=== PATIENT | male | born 1970 | race Caucasian/White ===

== ENCOUNTER 2016-09-02 17:33 | Observation (INO) ==
--- NOTE | 2016-09-02 20:06 | Emergency Department Note ---
Disposition Clinical Impression: Bronchitis, Tobacco abuse, Pulmonary nodule Emphysema lung Qualifiers: Emphysema type: unspecified Qualified Code(s): J43.9 - Emphysema, unspecified Disposition: Admitted As Inpatient Condition: Good Time of Disposition: 20:21 General Adult HPI - General Chief complaint: ED Nausea/Vomiting/Diarrhea Stated complaint: "hurts all over" Time Seen by Provider: 09/02/16 19:11 Source: patient Mode of arrival: ambulatory Limitations: no limitations Nursing Notes Reviewed: Yes Vital Signs Reviewed: Yes - History of Present Illness HPI Narrative: 46-year-old male history of tobacco use presents for evaluation "hurt all over" with the primary focus of pain bilateral lower chest/ribs. Patient states the pain started after several episodes of coughing over the past 3 days. Patient states this started 3 days ago with cough and fever. Patient states his symptoms appear to resolving. Patient notes that he only coughed a couple times today. Patient has been taking NyQuil as needed for relief. Patient denies any chest pain. Patient states his lower rib pain started after coughing has had one episode of posttussis emesis. Patient has no abdominal pain. Patient denies any recent travel, presented availability, history of PE or DVT. Patient denies being a immunocompromised. Pain Scale: 0 - Related Data Previous Rx's Medication Instructions Recorded Albuterol Sulfate [Albuterol 2 puff IH Q4HR PRN #1 hfa.aer.ad 09/02/16 Inhaler] Albuterol Sulfate [Albuterol 2 puff IH Q4H PRN #2 inh 09/05/16 Inhaler] Azithromycin [Zithromax Tri-Abraham] 500 mg PO DAILY #2 tablet 09/05/16 Cefdinir [Omnicef] 300 mg PO BID #14 capsule 09/05/16 Allergies Allergy/AdvReac Type Severity Reaction Status Date / Time No Known Allergies Allergy Verified 09/02/16 17:37 All systems ED: reviewed and negative except as stated. Constitutional: Reports: as per HPI, fever Eyes: Reports: as per HPI ENT ED: Reports: as per HPI Cardiovascular: Reports: as per HPI. Denies: chest pain Respiratory: Reports: as per HPI, cough. Denies: dyspnea Gastrointestinal: Reports: as per HPI Genitourinary: Reports: as per HPI Musculoskeletal: Reports: as per HPI Integumentary: Reports: as per HPI Neurological: Reports: as per HPI Psychiatric: Reports: as per HPI Endocrine: Reports: as per HPI Past Medical History - Past Medical History Medical history: Reports: non-contributory - Social History Smoking Status: Current every day smoker Alcohol use: Reports: rarely Drug use: Reports: none Physical Exam - General Limitations: no limitations General appearance: alert, cachectic, other (Older than stated age) - Head Head exam: atraumatic, normal inspection - Eye Eye exam: Present: normal appearance, EOMI - ENT ENT exam: normal exam, mucous membranes moist - Neck Neck exam: Present: normal inspection, trachea midline - Chest Chest inspection: Present: normal inspection, symmetric chest wall rise. Absent : tenderness (No tenderness in the bilateral lower ribs no overlying rash), rash - Respiratory Respiratory exam: Present: normal lung sounds bilaterally. Absent: respiratory distress, wheezes - Cardiovascular Cardiovascular exam: Present: normal rhythm, tachycardia - Abdominal Exam Abdominal exam: Present: soft, Non-Tender - Back Exam Back exam: Present: normal inspection, other (3 x 2 cm skin lesion on the left lower back) - Neurological Exam Neurological exam: Present: alert Course Course Narrative: Patient seen and examined. Patient is nontoxic-appearing. Patient symptoms are likely consistent with bronchitis. She does not have an official diagnosis of chronic bronchitis. Patient will get a chest x-ray and symptomatically treatment. Patient states that he feels better. Patient denies any at this time. - Reevaluation(s) Reevaluation #1: Patient seen and evaluated. Patient no acute distress. Patient's resting comfortably. Patient denies any symptoms of tuberculosis. Patient denies any history of incarceration. No hemoptysis. No unintentional weight loss. Patient does state that he has been having night sweats which he attributed to the recent cold. Time: 21:53 Reevaluation #2: Patient's resting comfortably. No acute distress. Time: 22:13 - Consultations Consultation #1: Spoke with hospitalist regarding admission. Hospitalist will confirm negative airflow room and then will accept the patient. Time: 22:56 Vital Signs Temperature 99 F 09/02/16 17:35 Pulse Rate 125 09/02/16 17:35 Respiratory Rate 16 09/02/16 17:35 Blood Pressure 124/77 09/02/16 17:35 O2 Sat by Pulse Oximetry 92 09/02/16 17:35 Temperature 97.3 F L 09/05/16 12:17 Pulse Rate 74 09/05/16 12:17 Respiratory Rate 14 09/05/16 12:17 Blood Pressure 117/77 09/05/16 12:17 O2 Sat by Pulse Oximetry 94 09/05/16 12:17 Oxygen Delivery Oxygen Delivery Room Air Medical Decision Making - MDM Narrative Medical decision making narrative: 46-year-old male presents for evaluation of cough and bilateral rib pain. Patient states symptoms started approximately 3 days ago with fever. Patient states the coughing has improved. Patient had a chest x-ray performed which had concerning signs of possible tuberculosis. Patient states he has been having night sweats. No unnecessary weight loss. No hemoptysis. Patient has not been incarcerated. Patient does have a concerning history as well as physical exam findings of facial muscle wasting and lung findings. Concerned that the patient does not have appropriate follow-up for this as an outpatient. Patient will be admitted for observation, infectious disease control on airborne precautions. Patient will likely need to be further evaluated by infectious disease. Patient will be started on a Zithromax as well as Rocephin covering for community acquired pneumonia. - Lab Data Lab results reviewed: Yes I reviewed the patient's lab results. Result diagrams: 09/04/16 04:18 09/04/16 04:18 Lab Results 09/02/16 09/02/16 Range/Units 22:23 22:23 WBC 14.7 H (4.3-11.1) K/mcL RBC 4.36 (4.19-5.50) M/mcL Hgb 13.5 (12.9-16.9) g/dL Hct 39.1 (37.5-50.1) % MCV 89.7 (83.0-100.0) fL MCH 31.0 (28.0-33.3) pg MCHC 34.5 (31.6-35.5) g/dL RDW 12.8 (11.5-14.5) % Plt Count 255 (140-400) K/mcL MPV 9.1 L (9.4-12.4) fL Immature Gran % 0.3 (0-4) % Seg Neutrophils % 77.2 % Lymphocytes % 11.9 % Monocytes % 10.2 % Eosinophils % 0.1 % Basophils % 0.3 % Neutrophils # 11.3 H (1.6-8.9) K/mcL Lymphocytes # 1.8 (0.6-4.6) K/mcL Monocytes # 1.5 H (0.0-1.3) K/mcL Eosinophils # 0.0 (0.0-0.6) K/mcL Basophils # 0.1 (0.0-0.2) K/mcL Sodium 131 L (136-145) mEq/L Potassium 3.9 (3.5-4.5) mEq/L Chloride 96 L (98-109) mEq/L Carbon Dioxide 25 (19-29) mEq/L BUN 11 (8-26) mg/dL Creatinine 0.73 (0.72-1.25) mg/dL Est GFR ( Amer) > 60 (> 60) Est GFR (Non-Af Amer) > 60 (> 60) BUN/Creatinine Ratio 15 (6-26) Glucose 108 H (70-99) mg/dL Calculated Osmolality 272 L (280-300) Calcium 9.6 (8.6-10.8) mg/dL - Radiology Data Radiology results reviewed: Yes I reviewed the patient's radiology results. Chest X-Ray 09/02/16 20:07 IMPRESSION: Moderate to severe emphysema with diffuse chronic interstitial and reticular opacities with more confluent areas of scarring/bronchiectasis noted in the right apex, left upper lobe and right lower lobes. Additional nodular opacities at the right base may reflect a more acute component. Overall findings may represent sequela of acute on chronic infection, including TB. Findings were discussed with Champ Hickman at 8:55 pm on 09/02/2016. D/ / Mau Morales MD / Mau Morales MD Interpreting Provider: Mau Morales MD S.B.A.R. - S.B.A.R. Situation: Demographics Background: Presenting Complaint Assessment: Vital Signs, Course and respsone to treatment, Exam Concerns, Patient/Family Expectation Recommendation: Barrier(s) to disposition, Recommendation based on pending studies, treatments, or consults S.B.A.R. Report Given to: Dr. CY Silva Repor Time: 23:28 Attestation Statement - Attestation Attestation: I examined this patient and my medical decision-making was reviewed with the Resident Physician. I agree with the documented findings, disposition and treatment plan as described except to the extent set forth below. CXR concerning for the possibility of Tb, admission for further [facility]
[2016-09-02 22:42] LABS: Basophils # 0.1 K/mcL (0.0-0.2); Basophils % 0.3 %; Eosinophils % 0.1 %; Hematocrit 39.1 % (37.5-50.1); Hemoglobin 13.5 g/dL (12.9-16.9); Immature Granulocytes % 0.3 % (0-4); Lymphocytes # 1.8 K/mcL (0.6-4.6); Lymphocytes % 11.9 %; Mean Corpuscular HGB Conc 34.5 g/dL (31.6-35.5); Mean Corpuscular Volume 89.7 fL (83.0-100.0); Mean Platelet Volume 9.1 fL (9.4-12.4); Monocytes # 1.5 K/mcL (0.0-1.3); Monocytes % 10.2 %; Neutrophils # 11.3 K/mcL (1.6-8.9); Platelet Count 255 K/mcL (140-400); Red Blood Count 4.36 M/mcL (4.19-5.50); Red Cell Distribution Width 12.8 % (11.5-14.5); Segmented Neutrophils % 77.2 %
[2016-09-02] MEDS ORDERED: Azithromycin 500 MG in D5% in Water 250 ML IVPB ONE (22:45)
[2016-09-02 22:54] LABS: BUN/Creatinine Ratio 15 (6-26); Blood Urea Nitrogen 11 mg/dL (8-26); Calcium 9.6 mg/dL (8.6-10.8); Carbon Dioxide 25 mEq/L (19-29); Chloride 96 mEq/L (98-109); Glucose 108 mg/dL (70-99); Osmolality,Calculated 272 (280-300); Potassium 3.9 mEq/L (3.5-4.5); Sodium 131 mEq/L (136-145); eGFR For African Americans > 60 (> 60); eGFR For Non-African Americans > 60 (> 60)
--- NOTE | 2016-09-03 01:29 | Internal Med History&Physical ---
<Kristi Sweeney - Last Filed: 09/03/16 03:23> Date of Encounter: 09/03/16 Time of Encounter: 00:30 Assessment and Plan (1) Pneumonia Current visit: Yes Status: Acute - CXR found moderate to severe emphysema and scarring/bronchiectasis in the right apex, left upper lobe and right lower lobes. Nodular opacities at the right base may reflect a more acute component. Overall findings may represent sequela of acute on chronic infection, including TB. - Unknown pathogen at this time but will treat as community acquired pneumonia while keeping patient in negative pressure room with respiratory precaution for questionable TB. - Will obtain sputum cultures including AFB smear and culture. - Will check Quantiferon GOLD for TB. - Also check respiratory infection panel and urine antigens for Legionella and S. pneumoniae. - Will consult infectious diseases and appreciate their input, especially for questionable TB in this patient. - Continue IV ceftriaxone and azithromycin but will de-escalate later based on clinical change/culture result. - Continue to monitor. Qualifiers: Pneumonia type: due to unspecified organism Laterality: unspecified laterality Lung location: unspecified part of lung Qualified Code(s): J18.9 - Pneumonia, unspecified organism (2) Emphysema lung Current visit: Yes Status: Chronic - CXR showed moderate to severe emphysema. - Likely secondary to underlying COPD given patient's significant smoking history. - Bronchodilators prn. - Patient is recommended to have outpatient work-up after discharge. Qualifiers: Emphysema type: unspecified Qualified Code(s): J43.9 - Emphysema, unspecified (3) Pulmonary nodule Current visit: Yes Status: Chronic - CXR found nodular opacities at right lung base. - Patient is recommended to have outpatient work-up after discharge. (4) Tobacco abuse Current visit: Yes Status: Chronic - 1 pack per day for more than 20 years. - Will provide nicotine patch during his hospital stay. - Smoking cessation counseling. Internal Medicine - H&P: HPI Chief complaint: Cough with lower rib pain Admitted From: Emergency Dept Plans for Post Hospital Care: Home History of present illness: Mr. Madison is a 46 year old male with significant smoking history. Patient presented to [facility] ED on 09/02 for cough and associated rib pain. Per patient, those symptoms started since 08/29 and he developed some shortness of breath and one episode of fever with night sweat on 08/30. The symptoms remained stable on but got significantly worse with green sputum production on 09/01. CXR suggests acute on chronic infection including TB. Of encounter on the hospital floor, patient reports cough and rib pain had improved since coming to ED. Patient reports weight loss of 3 lb over 5 days due to poor appetite from current illness. 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 Patient denies hemoptysis. Patient denies recent travel or known exposure to someone with possible TB. Patient reports last incarcerated in 1991 with 10-day in skilled nursing for DUI. Patient works a [employer] company and lives in a trailer. Patient smokes 1 pack per day for more than 20 years with occasional alcohol use. Patient denies illicit or IV drug use. Patient reports no known diagnosis of heart or lung problem but admits not seeing doctor for more than 20 years. Past Med Surg Social Fam HX - Past Medical History Medical history: non-contributory - Past Surgical History Surgical History: no surgical history - Social History Smoking Status: Current every day smoker Alcohol use: occasionally Drug use: none - Family History Mother Hx Family Cardiac Disorders: Yes (HTN) Internal Medicine - H&P: Meds Albuterol Sulfate [Albuterol Inhaler] 2 puff IH Q4HR PRN #1 hfa.aer.ad 09/02/16 [Rx] Allergies No Known Allergies Allergy (Verified 09/02/16 17:37) All Systems PM: A 10-system review of systems was performed and is negative for pertinent findings except as documented above in the HPI. - Constitutional Constitutional: night sweats (Only one time with fever on 08/30.), weight loss ( 3 lbs over 5 days), no chills, no fatigue, no fever(s) - EENT Eyes: no change in vision Ears: no decreased hearing Nose, mouth and throat: no dysphagia, no odynophagia - Cardiovascular Cardiovascular ROS IM: no chest pain, no lightheadedness, no palpitations, no syncope - Respiratory Respiratory: as per HPI - Gastrointestinal Gastrointestinal: no abdominal pain, no hematochezia, no melena, no nausea, no vomiting - Genitourinary Genitourinary ROS male: no difficulty urinating, no dysuria, no hematuria - Musculoskeletal Musculoskeletal ROS IM: myalgias (rib pain from cough), no arthralgias - Integumentary Integumentary IM: no pruritus, no rash - Neurological Neurological ROS: no focal weakness, no numbness, no tingling - Hematologic/Lymphatic Hematologic/Lymphatic: no easy bleeding, no easy bruising - Constitutional Vitals: Temp Pulse Resp BP Pulse Ox 98.0 F 92 18 113/70 92 09/03/16 01:06 09/03/16 01:06 09/03/16 01:06 09/03/16 01:06 09/03/16 01:06 General appearance: Present: cooperative, A&O X 3, no acute distress, answers questions appropriately - Head Head exam: Present: atraumatic, normocephalic - Eye Eye exam: Present: PERRL, conjuntiva pink, sclera anicteric Pupils: Present: PERRL - Neck Neck exam general surgery: Present: supple, trachea midline. Absent: lymphadenopathy - Respiratory Respiratory exam: Present: rales (Right basilar). Absent: accessory muscle use , rhonchi, wheezes - Cardiovascular Cardiovascular exam: Present: RRR, +S1, +S2. Absent: diastolic murmur, gallop, rubs, systolic murmur - GI/Abdominal GI/Abdominal exam: Present: normal bowel sounds, soft, no peritoneal signs. Absent: distended, tenderness - Extremities Exam Extremities exam: Present: warm, radial pulses palpable and symetrical. Absent : calf tenderness, cyanotic, pedal edema - Neurological Exam Neurological exam: Present: CN II-XII intact, oriented X3, no focal deficits. Absent: pronater drift, facial droop, speech deficit - Skin Skin exam: Present: dry, intact, warm Internal Med - H&P Results - Labs CBC & Chem 7: 09/02/16 22:23 09/02/16 22:23 <Nicole Mercado - Last Filed: 09/03/16 04:24> Date of Encounter: 09/03/16 Internal Medicine - H&P: HPI History of present illness: Mr. Madison is a 46 year old male All Systems PM: A 10-system review of systems was performed and is negative for pertinent findings except as documented above in the HPI. - Constitutional Vitals: Temp Pulse Resp BP Pulse Ox 98.0 F 92 18 113/70 92 09/03/16 01:06 09/03/16 01:06 09/03/16 01:06 09/03/16 01:06 09/03/16 01:06 Internal Med - H&P Results - Labs CBC & Chem 7: 09/02/16 22:23 09/02/16 22:23 - Attending Attestation Patient seen and examined, agree with assessment and plan by Resident Vitaliy Sweeney. Patient with cough, concern for CAP and CXR with possible active tuberculosis. Patient very thin but states this is not new - no hemoptysis or night sweats. History of imprisonment >10 years ago for 10 days. Will treat for CAP and consult ID for assistance with ruling out tuberculosis in most efficient manner.
[2016-09-03] MEDS ORDERED: Acetaminophen 325 MG TABLET PO PRN (01:34)
[2016-09-03] MEDS ORDERED: Ipratropium/Albuterol Neb 3 ML IH PRN (04:08)
[2016-09-03 04:41] LABS: Basophils % 0.3 %; Eosinophils # 0.1 K/mcL (0.0-0.6); Eosinophils % 0.6 %; Hematocrit 36.9 % (37.5-50.1); Hemoglobin 12.6 g/dL (12.9-16.9); Immature Granulocytes % 0.6 % (0-4); Lymphocytes # 1.9 K/mcL (0.6-4.6); Lymphocytes % 14.3 %; Mean Corpuscular HGB Conc 34.1 g/dL (31.6-35.5); Mean Corpuscular Hemoglobin 30.7 pg (28.0-33.3); Mean Corpuscular Volume 89.8 fL (83.0-100.0); Mean Platelet Volume 9.2 fL (9.4-12.4); Monocytes # 1.5 K/mcL (0.0-1.3); Monocytes % 11.1 %; Neutrophils # 9.7 K/mcL (1.6-8.9); Platelet Count 252 K/mcL (140-400); Red Blood Count 4.11 M/mcL (4.19-5.50); Red Cell Distribution Width 12.8 % (11.5-14.5); Segmented Neutrophils % 73.1 %
[2016-09-03 05:01] LABS: Alanine Aminotransferase 10 Units/L (0-55); Albumin 2.9 g/dL (3.5-5.0); Albumin/Globulin Ratio 0.7 (1.1-2.2); Alkaline Phosphatase 87 Units/L (38-126); Aspartate Amino Transferase 15 Units/L (5-34); BUN/Creatinine Ratio 15 (6-26); Bilirubin,Total 0.7 mg/dL (0.2-1.2); Blood Urea Nitrogen 11 mg/dL (8-26); Calcium 9.5 mg/dL (8.6-10.8); Carbon Dioxide 29 mEq/L (19-29); Chloride 96 mEq/L (98-109); Globulin 4.3 g/dL (2.4-3.5); Glucose 103 mg/dL (70-99); Osmolality,Calculated 276 (280-300); Potassium 3.9 mEq/L (3.5-4.5); Sodium 133 mEq/L (136-145); Total Protein 7.2 g/dL (6.0-8.3); eGFR For African Americans > 60 (> 60); eGFR For Non-African Americans > 60 (> 60)
[2016-09-03 05:13] LABS: Adenovirus Not Detected (Not Detect); Bordetella Pertussis Not Detected (Not Detect); Chlamydophila pneumoniae Not Detected (Not Detect); Coronavirus 229E Not Detected (Not Detect); Coronavirus HKU1 Not Detected (Not Detect); Coronavirus NL63 Not Detected (Not Detect); Coronavirus OC43 Not Detected (Not Detect); Human Metapneumovirus Not Detected (Not Detect); Human Rhinovirus/Enterovirus ***DETECTED*** (Not Detect); Influenza A Subtype 2009 H1 Not Detected (Not Detect); Influenza A Untypeable Not Detected (Not Detect); Influenza B Not Detected (Not Detect); Mycoplasma pneumoniae Not Detected (Not Detect); Parainfluenza Virus 1 Not Detected (Not Detect); Parainfluenza Virus 2 Not Detected (Not Detect); Parainfluenza Virus 3 Not Detected (Not Detect); Parainfluenza Virus 4 Not Detected (Not Detect); Respiratory Syncytial Virus Not Detected (Not Detect)
[2016-09-03] MEDS ORDERED: Tuberculin Skin Test (PPD) 5 TUB/0.1 ML VIAL ID ONE (07:57)
[2016-09-03] MEDS ORDERED: *HR* Enoxaparin 40 MG/0.4 ML SYRINGE SQ ONE (08:12)
--- NOTE | 2016-09-03 08:39 | Internal Med Progress Note ---
Date of Encounter: 09/03/16 Time of Encounter: 09:28 - Assessment and plan (1) Pneumonia Current Visit: Yes Status: Acute Assessment and plan: Follow resp panel, Urine strep Ag, Urine legionella, Continue Cef/Azithro, leukocytosis is improving Follow sputum culture Follow sputum AFB Follow Quantiferon Infectious disease has been consulted, will follow recs Qualifiers: Pneumonia type: due to unspecified organism Laterality: unspecified laterality Lung location: unspecified part of lung Qualified Code(s): J18.9 - Pneumonia, unspecified organism (2) Pulmonary nodule Current Visit: Yes Status: Chronic Assessment and plan: High risk, will need monitoring and repeat imaging as out-patient (3) Emphysema lung Current Visit: Yes Status: Chronic Assessment and plan: Moderate-Severe emphysema per imaging, patient also with barrel chest Continue [id number] prn Not wheezing, nor in exacerbation a this time Qualifiers: Emphysema type: unspecified Qualified Code(s): J43.9 - Emphysema, unspecified (4) Tobacco abuse Current Visit: Yes Status: Chronic Assessment and plan: NRT - Subjective Interval history: 46 Y/O M Initial encounter Heavy smoker, >20 pack years, admitted for complains of cough and pleuritic chest plaza Findings on admission include leuocytosis with left shift, CXR found moderate to severe emphysema and scarring/bronchiectasis in the right apex, left upper lobe and right lower lobes. Nodular opacities at the right base may reflect a more acute component. Overall findings may represent sequela of acute on chronic infection, including TB. He is being managed for pneumonia, community acquired, organism unknown, as well as rule out TB he is evaluated at bedside, and has no new complains he states his pleuritic chest pain is improving He denies recent incarceration, no sick contacts, has never lived in a retirement, he has always been thin and denies any recent weight loss Work up is pending - Constitutional Vitals: Temp Pulse Resp BP Pulse Ox 98.0 F 79 17 107/65 95 09/03/16 07:33 09/03/16 07:33 09/03/16 07:33 09/03/16 07:33 09/03/16 07:33 General appearance: Present: cooperative, A&O X 3, pleasant, no acute distress, underweight, answers questions appropriately - Head Head exam: Present: atraumatic, normocephalic - Eye Eye exam: Present: PERRL, conjuntiva pink, sclera anicteric Pupils: Present: PERRL - Neck Neck exam general surgery: Present: supple, trachea midline. Absent: lymphadenopathy - Respiratory Additional comments: Right midlle and lower lobe rhonchi, No wheezing, no crackles - Cardiovascular Cardiovascular exam: Present: RRR, +S1, +S2. Absent: diastolic murmur, gallop, rubs, systolic murmur - GI/Abdominal GI/Abdominal exam: Present: normal bowel sounds, soft, no peritoneal signs. Absent: distended, tenderness - Extremities Exam Extremities exam: Present: warm, radial pulses palpable and symetrical. Absent : calf tenderness, cyanotic, pedal edema - Neurological Exam Neurological exam: Present: alert, CN II-XII intact, normal gait, oriented X3, no focal deficits. Absent: pronater drift, facial droop, speech deficit - Skin Skin exam: Present: dry, intact Internal Medicine: Result - Labs CBC & Chem 7: 09/03/16 04:17 09/03/16 04:17 Labs: Short CBC 09/03/16 Range/Units 04:17 WBC 13.3 H (4.3-11.1) K/mcL Hgb 12.6 L (12.9-16.9) g/dL Hct 36.9 L (37.5-50.1) % Plt Count 252 (140-400) K/mcL Neutrophils # 9.7 H (1.6-8.9) K/mcL BMP 09/03/16 04:17 Sodium 133 L Potassium 3.9 Chloride 96 L Carbon Dioxide 29 BUN 11 Creatinine 0.73 Glucose 103 H Calcium 9.5 Liver Function 09/03/16 Range/Units 04:17 Total Bilirubin 0.7 (0.2-1.2) mg/dL AST 15 (5-34) Units/L ALT 10 (0-55) Units/L Alkaline Phosphatase 87 (38-126) Units/L Albumin 2.9 L (3.5-5.0) g/dL Consult Discharge Plan - Plan Referrals: NO,PCP [Primary Care Provider] -
[2016-09-03] MEDS: Nicotine 14 MG PATCH.TD24 TD SCH (09:30)
--- NOTE | 2016-09-03 13:54 | Infectious Disease Consult ---
Date of Encounter: 09/03/16 Time of Encounter: 13:47 Assessment and Plan (1) Sepsis Status: Acute Assessment and plan: The patient had two SIRS criteria on admission. Likely secondary to PNA. WBC trending down. Tachycardia has resolved. Blood cultures drawn 09/03/16 are pending x 2 sets. Qualifiers: Sepsis type: sepsis due to unspecified organism Qualified Code(s): A41.9 - Sepsis, unspecified organism (2) Pneumonia Status: Acute Assessment and plan: Community-acquired PNA. Bacterial vs. viral --> the patient was positive for Enterovirus/Rhinovirus, but he has had marked improvement since starting the IV antibiotics. CXR completed in the ED showed findings concerning for possible TB --> low index of suspicion given that the patient has no risk factors, exposure history , or clinical symptoms. Consider CT of the chest with IV contrast to evaluate further. Get sputum specimen if the patient is able to provide an adequate specimen and send for culture and AFB smear. Send sputum for AFB smear x 3. TB skin test placed this morning. Wait 48 hours, can be read on Thursday. If negative, can discontinue Airborne precautions. QTF Gold pending. S. pneumo and Legionella UAT negative. Continue Rocephin, switch to 2 grams IV daily. Continue Zithromax 500mg IV daily. Continue Airborne precautions for now. Duration of treatment depends on the clinical picture. Monitor renal function and dose-adjust antibiotics. Qualifiers: Pneumonia type: due to unspecified organism Laterality: unspecified laterality Lung location: unspecified part of lung Qualified Code(s): J18.9 - Pneumonia, unspecified organism (3) Emphysema lung Status: Chronic Assessment and plan: Consider pulmonology consult as an outpatient. Qualifiers: Emphysema type: unspecified Qualified Code(s): J43.9 - Emphysema, unspecified (4) Tobacco abuse Status: Chronic Assessment and plan: Discussed the importance of smoking cessation. Infectious Disease HPI - Data of Consult Patient: new to practice Consult date: 09/03/16 Requesting Physician: Frankie Samson MD Primary Care Provider: PCP NO - Consult Narrative Reason for consult: Possible TB History of present illness: Mr. Madison is a 46 year old male medical or surgical history. The patient was admitted to the hospital September 02 for pneumonia and possible TB. We are consulted September 03 for further evaluation and treatment recommendations regarding possible tuberculosis. Patient's a 46-year-old male with no past medical history. The patient states that on Thursday he began to experience fevers and chills and sweats that continued into Thursday. He states that on Thursday he felt pretty good and on Thursday he went to work. He reports approximately one hour after getting to work he began to cough and coughed up green sputum and continued to have a cough. He reported onset of bilateral rib pain associated with the coughing. He presented to the emergency department for further evaluation. Upon arrival, patient was afebrile, patient was tachycardic but was otherwise hemodynamically stable. Laboratory studies revealed a white blood cell count 14.7 thousand. Chest x-ray showed findings consistent with moderate to severe emphysema with diffuse chronic interstitial and reticular opacities with confluent areas of scarring/ bronchiectasis. There is also noted be nodular opacities at the right base. According to the radiologist, these overall findings may be consistent with acute or chronic infection, including tuberculosis. The patient started on IV Rocephin and Zithromax. He was admitted to the hospital for further evaluation and treatment. Additional studies included a respiratory infectious panel which was positive for enterovirus/rhinovirus. AFB smears and sputum cultures have been ordered, but have not been collected due to the patient not being able to cough anything up. Strep pneumococcal and legionella urinary antigen tests have been ordered and are pending. QuantiFERON gold test is pending. A TB skin test has been placed in the left forearm. We've been asked to evaluate and make further recommendations. During my exam today, the patient endorses a history as stated above. He states since being hospitalized since starting the antibiotics he feels much better. He denies any fevers or chills or rigor since admission. He does report fevers with drenching sweats and chills on Thursday. He denies any night sweats, weight loss, or hemoptysis prior to this acute infection. He states that the cough is improved and is nonproductive. He states he still has a little bit of pain in his bilateral ribs, but this is improved as well. He denies any headache or neck pain. 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 He denies any sore throat or earache. He denies any nausea, vomiting, diarrhea, constipation. He denies abdominal pain and states appetite is been okay. He denies any urinary complaints. He denies pain in any of his extremities. The patient lives locally by himself. He works at a [employer]. He has no pets. He denies any recent travel. He reports tobacco use, but a pack of cigarettes per day, but denies any alcohol or illicit drug use. He states he was in the [facility] back in the 90s for about 10 days, but denies incarceration in a detention. He has not been in the . He has not traveled outside the [facility]. He has not been exposed to tuberculosis that he knows of. CC: Frankie Samson MD Past Med Surg Social Fam HX - Past Medical History Attestation: Yes The following information was validated with the patient. Source: patient, old records reviewed, nursing notes reviewed Medical history: non-contributory Psychiatric history: no psych history - Past Surgical History Surgical History: no surgical history - Social History Smoking Status: Current every day smoker Packs per day: 1 Smokeless Tobacco Status: No Alcohol use: occasionally Drug use: none Occupational status: employed Current living situation: Home - Independent Activity Level: Independent ambulation Recent Out of Country Travel Within the Last 8 Weeks: No Exposure or Possible Exposure to Illness During Travel: No - Family History Mother Hx Family Cardiac Disorders: Yes (HTN) Infectious Disease-CN:Meds Albuterol Sulfate [Albuterol Inhaler] 2 puff IH Q4HR PRN #1 [email or web address] 09/02/16 [Rx] Allergies No Known Allergies Allergy (Verified 09/02/16 17:37) All systems: reviewed and no additional remarkable complaints except as stated Exam - Constitutional Vitals: Temp Pulse Resp BP Pulse Ox 98.0 F 79 17 107/65 95 09/03/16 07:33 09/03/16 07:33 09/03/16 07:33 09/03/16 07:33 09/03/16 07:33 General appearance: cooperative, no acute distress, thin - Head Head exam: Present: atraumatic, normal inspection, normocephalic - Eye Eye exam: Present: EOMI, normal appearance, PERRL Pupils: Present: normal accommodation - ENT ENT exam: Present: mucous membranes moist - Neck Neck exam: Present: normal inspection - Respiratory Respiratory exam: Present: CTAB, rhonchi (Left upper lobe). Absent: rales, respiratory distress, wheezes, tachypnea - Cardiovascular Cardiovascular exam: Present: RRR, +S1, +S2 - GI/Abdominal GI/Abdominal exam: Present: normal bowel sounds, soft. Absent: distended, tenderness - Extremities Exam Extremities exam: Present: normal inspection. Absent: joint swelling, pedal edema, tenderness - Neurological Exam Neurological exam: Present: alert, oriented X3, no focal deficits - Psychiatric Psychiatric exam: Present: normal affect, normal mood - Skin Skin exam: Present: dry, intact, normal color, warm Infectious Disease CN: Results - Labs CBC & Chem 7: 09/03/16 04:17 09/03/16 04:17 Cultures: Cultures 09/03/16 09:30 Legionella Antigen - Final Urine,Clean Catch Streptococcus pneumoniae Antigen (M - Final Serology: Serology 09/03/16 Range/Units 02:10 Chlamy pneumoniae PCR Not Detected (Not Detect) Adenovirus (PCR) Not Detected (Not Detect) B. pertussis DNA (PCR) Not Detected (Not Detect) Coronavirus OC43 (PCR) Not Detected (Not Detect) Coronavirus HKU1 (PCR) Not Detected (Not Detect) Coronavirus 229E (PCR) Not Detected (Not Detect) Coronavirus NL63 (PCR) Not Detected (Not Detect) Human Metapneumovirus Not Detected (Not Detect) Influenza A (H1) PCR Not Detected (Not Detect) Influ A (H1N1/09) PCR Not Detected (Not Detect) Influenza A (H3) PCR Not Detected (Not Detect) Influenza A Untype (PCR) Not Detected (Not Detect) Influenza Type B (PCR) Not Detected (Not Detect) M.pneumoniae DNA (PCR) Not Detected (Not Detect) Parainfluenza 1 (PCR) Not Detected (Not Detect) Parainfluenza 2 (PCR) Not Detected (Not Detect) Parainfluenza 3 (PCR) Not Detected (Not Detect) Parainfluenza 4 (PCR) Not Detected (Not Detect) RSV (PCR) Not Detected (Not Detect) Entero/Rhino (PCR) DETECTED A (Not Detect) Consult Discharge Plan - Plan Referrals: NO,PCP [Primary Care Provider] -
[2016-09-03] MEDS: Azithromycin 500 MG in D5% in Water 250 ML IVPB SCH (23:55)
[2016-09-04 04:48] LABS: Basophils % 0.3 %; Eosinophils # 0.1 K/mcL (0.0-0.6); Eosinophils % 1.2 %; Hematocrit 37.8 % (37.5-50.1); Immature Granulocytes % 0.5 % (0-4); Lymphocytes # 1.7 K/mcL (0.6-4.6); Lymphocytes % 19.7 %; Mean Corpuscular HGB Conc 34.4 g/dL (31.6-35.5); Mean Corpuscular Hemoglobin 31.1 pg (28.0-33.3); Mean Corpuscular Volume 90.4 fL (83.0-100.0); Mean Platelet Volume 8.9 fL (9.4-12.4); Monocytes # 1.1 K/mcL (0.0-1.3); Monocytes % 13.2 %; Neutrophils # 5.6 K/mcL (1.6-8.9); Platelet Count 285 K/mcL (140-400); Red Blood Count 4.18 M/mcL (4.19-5.50); Red Cell Distribution Width 12.7 % (11.5-14.5); Segmented Neutrophils % 65.1 %
[2016-09-04 04:56] LABS: BUN/Creatinine Ratio 15 (6-26); Blood Urea Nitrogen 10 mg/dL (8-26); Calcium 9.4 mg/dL (8.6-10.8); Carbon Dioxide 26 mEq/L (19-29); Chloride 100 mEq/L (98-109); Glucose 101 mg/dL (70-99); Osmolality,Calculated 279 (280-300); Potassium 4.2 mEq/L (3.5-4.5); Sodium 135 mEq/L (136-145); eGFR For African Americans > 60 (> 60); eGFR For Non-African Americans > 60 (> 60)
[2016-09-04] MEDS: *HR* Enoxaparin 40 MG/0.4 ML SYRINGE SQ SCH (05:40)
[2016-09-04] MEDS: Nicotine 14 MG PATCH.TD24 TD SCH (08:25)
--- NOTE | 2016-09-04 09:18 | Internal Med Progress Note ---
Date of Encounter: 09/04/16 Time of Encounter: 09:16 - Assessment and plan (1) Pneumonia Current Visit: Yes Status: Acute Assessment and plan: Continue Cef/Azithro at current dose, patient is making remarkable improvement WBC today 8.6, improved from 13.3 yesterday Add robitussin Follow sputum culture Follow sputum AFB Follow Quantiferon Patient is stable and not requiring O2 supplements Qualifiers: Pneumonia type: due to unspecified organism Laterality: unspecified laterality Lung location: unspecified part of lung Qualified Code(s): J18.9 - Pneumonia, unspecified organism (2) Sepsis Current Visit: Yes Status: Acute Assessment and plan: As above, improved no fever, tachycardia resolved, leukocytosis resolved Blood culture negative Urine legionella and strep Ag negative Follow sputum culture Qualifiers: Sepsis type: sepsis due to unspecified organism Qualified Code(s): A41.9 - Sepsis, unspecified organism (3) Pulmonary nodule Current Visit: Yes Status: Chronic Assessment and plan: High risk, will need monitoring and repeat imaging as out-patient (4) Emphysema lung Current Visit: Yes Status: Chronic Assessment and plan: Moderate-Severe emphysema per imaging, patient also with barrel chest Continue duonebs prn Not wheezing, nor in exacerbation a this time Qualifiers: Emphysema type: unspecified Qualified Code(s): J43.9 - Emphysema, unspecified (5) Tobacco abuse Current Visit: Yes Status: Chronic Assessment and plan: NRT, cessation counselling done today - Subjective Interval history: 46 Y/O M with PMH of COPD, Tobacco abuse Admitted and being managed for sepsis secondary to pneumonia, lung scarring/ bronchiectasis r/p TB Seen at bedside, states cough is now productive of greenish sputum, which he is encouraged to spit in cup for microbiology he is otherwise stable Awaiting sputum AFB, culture, PPD reading Leukocytosis is resolved, patient has remained afebrile, tachycardia has resolved - Constitutional Vitals: Temp Pulse Resp BP Pulse Ox 97.5 F L 81 16 107/75 91 09/04/16 08:31 09/04/16 08:31 09/04/16 08:31 09/04/16 08:31 09/04/16 08:31 General appearance: Present: cooperative, A&O X 3, pleasant, no acute distress, underweight, answers questions appropriately - Head Head exam: Present: atraumatic, normocephalic - Eye Eye exam: Present: PERRL, conjuntiva pink, sclera anicteric Pupils: Present: PERRL - Neck Neck exam general surgery: Present: supple, trachea midline. Absent: lymphadenopathy - Respiratory Additional comments: Right middle and lower lobe rhonchi, No wheezing, no crackles - Cardiovascular Cardiovascular exam: Present: RRR, +S1, +S2. Absent: diastolic murmur, gallop, rubs, systolic murmur - GI/Abdominal GI/Abdominal exam: Present: normal bowel sounds, soft, no peritoneal signs. Absent: distended, tenderness - Extremities Exam Extremities exam: Present: warm, radial pulses palpable and symetrical. Absent : calf tenderness, cyanotic, pedal edema - Neurological Exam Neurological exam: Present: alert, CN II-XII intact, normal gait, oriented X3, no focal deficits. Absent: pronater drift, facial droop, speech deficit - Skin Skin exam: Present: dry, intact Internal Medicine: Result - Labs CBC & Chem 7: 09/04/16 04:18 09/04/16 04:18 Labs: Short CBC 09/04/16 Range/Units 04:18 WBC 8.6 (4.3-11.1) K/mcL Hgb 13.0 (12.9-16.9) g/dL Hct 37.8 (37.5-50.1) % Plt Count 285 (140-400) K/mcL Neutrophils # 5.6 (1.6-8.9) K/mcL BMP 09/04/16 04:18 Sodium 135 L Potassium 4.2 Chloride 100 Carbon Dioxide 26 BUN 10 Creatinine 0.68 L Glucose 101 H Calcium 9.4 Consult Discharge Plan - Plan Referrals: NO,PCP [Primary Care Provider] -
[2016-09-04] MEDS ORDERED: GuaiFENesin Liq 200 MG/10 ML UDC PO PRN (09:24)
--- NOTE | 2016-09-04 13:02 | Infectious Disease Progress No ---
Date of Encounter: 09/04/16 Time of Encounter: 13:00 - Assessment and Plan (1) Sepsis Current Visit: Yes Status: Acute The patient had two SIRS criteria on admission. Likely secondary to PNA. WBC has normalized. Tachycardia has resolved. Blood cultures drawn 09/03/16 are NGTD x 2 sets Qualifiers: Sepsis type: sepsis due to unspecified organism Qualified Code(s): A41.9 - Sepsis, unspecified organism (2) Pneumonia Current Visit: Yes Status: Acute Community-acquired PNA. Bacterial vs. viral --> the patient was positive for Enterovirus/Rhinovirus, but he has had marked improvement since starting the IV antibiotics. CXR completed in the ED showed findings concerning for possible TB --> low index of suspicion given that the patient has no risk factors, exposure history , or clinical symptoms. Consider CT of the chest with IV contrast to evaluate further. Sputum specimen sent for culture/AFB x 1 so far. Collect two more sputum specimens and send for AFB. TB skin test placed 09/03/16. Wait 48 hours, can be read on Thursday. If negative, can discontinue Airborne precautions. QTF Gold pending. S. pneumo and Legionella UAT negative. Continue Rocephin, switch to 2 grams IV daily. Continue Zithromax 500mg IV daily. Continue Airborne precautions for now. Duration of treatment depends on the clinical picture. Monitor renal function and dose-adjust antibiotics. Qualifiers: Pneumonia type: due to unspecified organism Laterality: unspecified laterality Lung location: unspecified part of lung Qualified Code(s): J18.9 - Pneumonia, unspecified organism (3) Emphysema lung Current Visit: Yes Status: Chronic Consider pulmonology consult as an outpatient. Qualifiers: Emphysema type: unspecified Qualified Code(s): J43.9 - Emphysema, unspecified (4) Tobacco abuse Current Visit: Yes Status: Chronic - Subjective Interval history: Patient seen and examined. No acute events noted overnight. Patient resting quietly in bed. Denies fevers or chills. Denies chest pain or shortness of breath. States he has cough that is now productive of green sputum. Reports still having some intermittent rib pain with cough, but this is better. Denies nausea, vomiting, or diarrhea. Denies abdominal pain and states his appetite is okay. Denies urinary complaints. Denies oral thrush or skin lesions. Infect Dis PN-Objective Data - Labs CBC & Chem 7: 09/04/16 04:18 09/04/16 04:18 Labs: Laboratory Results - last 24 hr 09/04/16 09/04/16 04:18 04:18 WBC 8.6 RBC 4.18 L Hgb 13.0 Hct 37.8 MCV 90.4 MCH 31.1 MCHC 34.4 RDW 12.7 Plt Count 285 MPV 8.9 L Immature Gran % 0.5 Seg Neutrophils % 65.1 Lymphocytes % 19.7 Monocytes % 13.2 Eosinophils % 1.2 Basophils % 0.3 Neutrophils # 5.6 Lymphocytes # 1.7 Monocytes # 1.1 Eosinophils # 0.1 Basophils # 0.0 Sodium 135 L Potassium 4.2 Chloride 100 Carbon Dioxide 26 BUN 10 Creatinine 0.68 L Est GFR ( Amer) > 60 Est GFR (Non-Af Amer) > 60 BUN/Creatinine Ratio 15 Glucose 101 H Calculated Osmolality 279 L Calcium 9.4 Cultures: Cultures 09/04/16 08:25 Sputum Culture - Final Sputum 09/03/16 09:30 Legionella Antigen - Final Urine,Clean Catch Streptococcus pneumoniae Antigen (M - Final Serology 09/03/16 Range/Units 02:10 Chlamy pneumoniae PCR Not Detected (Not Detect) Adenovirus (PCR) Not Detected (Not Detect) B. pertussis DNA (PCR) Not Detected (Not Detect) Coronavirus OC43 (PCR) Not Detected (Not Detect) Coronavirus HKU1 (PCR) Not Detected (Not Detect) Coronavirus 229E (PCR) Not Detected (Not Detect) Coronavirus NL63 (PCR) Not Detected (Not Detect) Human Metapneumovirus Not Detected (Not Detect) Influenza A (H1) PCR Not Detected (Not Detect) Influ A (H1N1/09) PCR Not Detected (Not Detect) Influenza A (H3) PCR Not Detected (Not Detect) Influenza A Untype (PCR) Not Detected (Not Detect) Influenza Type B (PCR) Not Detected (Not Detect) M.pneumoniae DNA (PCR) Not Detected (Not Detect) Parainfluenza 1 (PCR) Not Detected (Not Detect) Parainfluenza 2 (PCR) Not Detected (Not Detect) Parainfluenza 3 (PCR) Not Detected (Not Detect) Parainfluenza 4 (PCR) Not Detected (Not Detect) RSV (PCR) Not Detected (Not Detect) Entero/Rhino (PCR) DETECTED A (Not Detect) Exam - Constitutional Vitals: Temp Pulse Resp BP Pulse Ox 97.5 F L 70 16 118/74 94 09/04/16 10:50 09/04/16 10:50 09/04/16 10:50 09/04/16 10:50 09/04/16 10:50 General appearance: average body habitus, cooperative, no acute distress - Head Head exam: Present: atraumatic, normal inspection, normocephalic - Eye Eye exam: Present: EOMI, normal appearance, PERRL Pupils: Present: normal accommodation - ENT ENT exam: Present: mucous membranes moist - Neck Neck exam: Present: normal inspection - Respiratory Respiratory exam: Present: CTAB. Absent: rales, respiratory distress, rhonchi, wheezes - Cardiovascular Cardiovascular exam: Present: RRR, +S1, +S2 - GI/Abdominal GI/Abdominal exam: Present: normal bowel sounds, soft. Absent: distended, tenderness - Extremities Exam Extremities exam: Present: normal inspection. Absent: joint swelling, pedal edema, tenderness - Neurological Exam Neurological exam: Present: alert, oriented X3, no focal deficits - Psychiatric Psychiatric exam: Present: normal affect, normal mood - Skin Skin exam: Present: dry, intact, normal color, warm Consult Discharge Plan - Plan Referrals: NO,PCP [Primary Care Provider] -
[2016-09-04] MEDS: Azithromycin 500 MG in D5% in Water 250 ML IVPB SCH (22:14)
[2016-09-05] MEDS: *HR* Enoxaparin 40 MG/0.4 ML SYRINGE SQ SCH (04:46)
[2016-09-05] MEDS: Nicotine 14 MG PATCH.TD24 TD SCH (09:36)
--- NOTE | 2016-09-05 11:19 | Infectious Disease Progress No ---
Date of Encounter: 09/05/16 Time of Encounter: 11:14 - Assessment and Plan (1) Sepsis Current Visit: Yes Status: Resolved The patient had two SIRS criteria on admission. Likely secondary to PNA. WBC has normalized. Tachycardia has resolved. Blood cultures drawn 09/03/16 are NGTD x 2 sets Qualifiers: Sepsis type: sepsis due to unspecified organism Qualified Code(s): A41.9 - Sepsis, unspecified organism (2) Pneumonia Current Visit: Yes Status: Acute Community-acquired PNA. Bacterial vs. viral --> the patient was positive for Enterovirus/Rhinovirus, but he has had marked improvement since starting the IV antibiotics. CXR completed in the ED showed findings concerning for possible TB --> low index of suspicion given that the patient has no risk factors, exposure history , or clinical symptoms. PPD negative. Sputum specimen sent for culture/AFB x 2 so far. Collect one more sputum specimen and send for AFB. TB skin test placed 09/03/16. Negative. QTF Gold pending. S. pneumo and Legionella UAT negative. Continue Rocephin, switch to 2 grams IV daily. Continue Zithromax 500mg IV daily. Agree with discontinuing Airborne precautions. Duration of treatment depends on the clinical picture. Recommend switching to Amoxicillin 875mg PO BID and Azithromycin 500mg PO daily to complete a 7 day course. Treat through 09/09/16. Monitor renal function and dose-adjust antibiotics. Qualifiers: Pneumonia type: due to unspecified organism Laterality: unspecified laterality Lung location: unspecified part of lung Qualified Code(s): J18.9 - Pneumonia, unspecified organism (3) Emphysema lung Current Visit: Yes Status: Chronic Consider pulmonology consult as an outpatient. Qualifiers: Emphysema type: unspecified Qualified Code(s): J43.9 - Emphysema, unspecified (4) Tobacco abuse Current Visit: Yes Status: Chronic Discussed the importance of smoking cessation. - Subjective Interval history: Patient seen and examined. No acute events noted overnight. Patient resting quietly in bed. Airborne precautions discontinued this morning due to negative PPD. Denies fevers or chills. Denies chest pain or shortness of breath. Denies cough or rib pain. States he feels better today than he has in weeks. . Denies nausea, vomiting, or diarrhea. Denies abdominal pain and states his appetite is okay. Denies urinary complaints. Denies oral thrush or skin lesions. Infect Dis PN-Objective Data - Labs CBC & Chem 7: 09/04/16 04:18 09/04/16 04:18 Cultures: Cultures 09/04/16 15:45 Sputum Culture - Final Sputum 09/04/16 08:25 Acid Fast Stain - Final Sputum 09/04/16 08:25 Sputum Culture - Final Sputum 09/03/16 09:30 Legionella Antigen - Final Urine,Clean Catch Streptococcus pneumoniae Antigen (M - Final Serology 09/03/16 Range/Units 02:10 Chlamy pneumoniae PCR Not Detected (Not Detect) Adenovirus (PCR) Not Detected (Not Detect) B. pertussis DNA (PCR) Not Detected (Not Detect) Coronavirus OC43 (PCR) Not Detected (Not Detect) Coronavirus HKU1 (PCR) Not Detected (Not Detect) Coronavirus 229E (PCR) Not Detected (Not Detect) Coronavirus NL63 (PCR) Not Detected (Not Detect) Human Metapneumovirus Not Detected (Not Detect) Influenza A (H1) PCR Not Detected (Not Detect) Influ A (H1N1/09) PCR Not Detected (Not Detect) Influenza A (H3) PCR Not Detected (Not Detect) Influenza A Untype (PCR) Not Detected (Not Detect) Influenza Type B (PCR) Not Detected (Not Detect) M.pneumoniae DNA (PCR) Not Detected (Not Detect) Parainfluenza 1 (PCR) Not Detected (Not Detect) Parainfluenza 2 (PCR) Not Detected (Not Detect) Parainfluenza 3 (PCR) Not Detected (Not Detect) Parainfluenza 4 (PCR) Not Detected (Not Detect) RSV (PCR) Not Detected (Not Detect) Entero/Rhino (PCR) DETECTED A (Not Detect) Exam - Constitutional Vitals: Temp Pulse Resp BP Pulse Ox 97.4 F L 74 16 117/74 96 09/05/16 04:55 09/05/16 04:55 09/05/16 04:55 09/05/16 04:55 09/05/16 04:55 General appearance: average body habitus, cooperative, no acute distress - Head Head exam: Present: atraumatic, normal inspection, normocephalic - Eye Eye exam: Present: EOMI, normal appearance, PERRL Pupils: Present: normal accommodation - ENT ENT exam: Present: mucous membranes moist - Neck Neck exam: Present: normal inspection - Respiratory Respiratory exam: Present: CTAB, rhonchi (RUL). Absent: rales, respiratory distress, wheezes - Cardiovascular Cardiovascular exam: Present: RRR, +S1, +S2 - GI/Abdominal GI/Abdominal exam: Present: normal bowel sounds, soft. Absent: distended, tenderness - Extremities Exam Extremities exam: Present: normal inspection. Absent: joint swelling, pedal edema, tenderness - Neurological Exam Neurological exam: Present: alert, oriented X3, no focal deficits - Psychiatric Psychiatric exam: Present: normal affect, normal mood - Skin Skin exam: Present: dry, intact, normal color, warm Consult Discharge Plan - Plan Referrals: NO,PCP [Primary Care Provider] -
--- NOTE | 2016-09-05 11:37 | Discharge Summary ---
Date of Encounter: 09/05/16 Time of Encounter: 11:37 - Discharge Diagnosis (1) Pneumonia Priority: Primary Status: Acute Qualifiers: Pneumonia type: due to unspecified organism Laterality: unspecified laterality Lung location: unspecified part of lung Qualified Code(s): J18.9 - Pneumonia, unspecified organism (2) Sepsis Priority: Primary Status: Resolved Qualifiers: Sepsis type: sepsis due to unspecified organism Qualified Code(s): A41.9 - Sepsis, unspecified organism (3) Pulmonary nodule Priority: Secondary Status: Chronic (4) Emphysema lung Priority: Secondary Status: Chronic Qualifiers: Emphysema type: unspecified Qualified Code(s): J43.9 - Emphysema, unspecified (5) Tobacco abuse Priority: Secondary Status: Chronic - Discharge Medications Prescriptions: Albuterol Sulfate [Albuterol Inhaler] 2 puff IH Q4H PRN #2 inh PRN Reason: Shortness Of Breath/Wheezing Azithromycin [Zithromax Tri-Abraham] 500 mg PO DAILY #2 tablet Cefdinir [Omnicef] 300 mg PO BID #14 capsule Home Medications: Albuterol Sulfate [Albuterol Inhaler] 2 puff IH Q4HR PRN #1 hfa.aer.ad 09/02/16 [Rx] Albuterol Sulfate [Albuterol Inhaler] 2 puff IH Q4H PRN #2 inh 09/05/16 [Rx] Azithromycin [Zithromax Tri-Abraham] 500 mg PO DAILY #2 tablet 09/05/16 [Rx] Cefdinir [Omnicef] 300 mg PO BID #14 capsule 09/05/16 [Rx] Allergies/Adverse Reactions: Allergies No Known Allergies Allergy (Verified 09/02/16 17:37) Date of admission: 09/02/16 23:38 Primary care physician: PCP NO Consults: 09/03/16 02:45 Consult to Infectious Diseases [CONS] Routine Consulting Provider: [facility] Reason for Consult: CXR concerning of TB. Appreciate infectious diseases input. Will call in the morning. Call Completed: No Discharging clinician: Frankie Samson Anticipated date of discharge: 09/05/16 - Patient Status Disposition: Home, Self-Care Condition: Good Functional capacity at discharge: independent ambulation Overall status at discharge: patient is back to baseline - Discharge Instructions Instructions: Albuterol (By breathing), Azithromycin (By mouth), Cefdinir (By mouth), Pneumonia (DC) Follow Up With: NO,PCP [Primary Care Provider] - - Diet and Activity Activity: resume usual activities as tolerated Diet: advance to your usual diet Interval History: See below Hospital course: Mr. Madison is a 46 year old male with PMH of heavy tobacco use and emphysema He presented to [facility] with 3 days history of cough and pleuritic chest pain. Exam on admission revealed tachycardia and tachypnea, chest exam with bibasal rhonchi R>L. Work up revealed leukocytosis with left shift, and mild hyponatremia. CXR suggests acute on chronic infection including TB. Patient denies terminal supervisor weight loss or night sweat. Patient denies hemoptysis. Patient denies recent travel or known exposure to someone with possible TB. Patient reports last incarcerated in 1991 with 10-day in long-term for DUI. 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 Patient smokes 1 pack per day for more than 20 years with occasional alcohol use. Patient denies illicit or IV drug use. Patient reports no known diagnosis of heart or lung problem but admits not seeing doctor for more than 20 years. patient was admitted for management of sepsis secondary to pneumonia, rule out TB. Sputum culture was negative, sputum for AFB was negative X2, quantiferon was sent and is pending, urine for legionella Ag and Strep Ag was negative. Blood culture was negative X2. PPD was placed and reading ws 0mm after 48 hours He received IV antibiotics for 3 days His white count has normalized since 09/04 and he has remained afebrile with no extra O2 requirement He is discharged home on 7 more days of Omnicef and 2 more days of azithromycin. Patient has no insurance and was given material to establish PCP with [facility] once his insurance has been set up he is recommended to have repeat imaging to ensure clearance of infection in 6 weeks, he also has a pulmonary nodule that needs to be monitored with repeat imaging in 3 months Tobacco cessation counselling was done Patient verbalized understanding and refused NRT Time spent discussing smoking cessation with patient: 3 to 10 minutes (5 minutes spent on tobacco cessation counselling.) - Time Spent with Patient Total time spent providing and/or coordinating discharge services: Less than 30 minutes - Constitutional Vitals: Temp Pulse Resp BP Pulse Ox 97.4 F L 74 16 117/74 96 09/05/16 04:55 09/05/16 04:55 09/05/16 04:55 09/05/16 04:55 09/05/16 04:55 General appearance: Present: cooperative, A&O X 3, pleasant, no acute distress, underweight, answers questions appropriately - Head Head exam: Present: atraumatic, normocephalic - Eye Eye exam: Present: PERRL, conjuntiva pink, sclera anicteric Pupils: Present: PERRL - Neck Neck exam general surgery: Present: supple, trachea midline. Absent: lymphadenopathy - Respiratory Respiratory exam: Present: CTAB. Absent: accessory muscle use, rales, rhonchi, wheezes - Cardiovascular Cardiovascular exam: Present: RRR, +S1, +S2. Absent: diastolic murmur, gallop, rubs, systolic murmur - GI/Abdominal GI/Abdominal exam: Present: normal bowel sounds, soft, no peritoneal signs. Absent: distended, tenderness - Extremities Exam Extremities exam: Present: warm, radial pulses palpable and symetrical. Absent : calf tenderness, cyanotic, pedal edema - Neurological Exam Neurological exam: Present: alert, CN II-XII intact, normal gait, oriented X3, no focal deficits. Absent: pronater drift, facial droop, speech deficit - Skin Skin exam: Present: dry, intact
[2016-09-05 12:18] VITALS: BP 117/77
[2016-09-06 20:26] LABS: QuantiFERON Mitogen minus NIL >10.00 IU/mL; QuantiFERON-TB minus NIL 0.02 IU/mL (0.00-0.34)
[2016-09-08 14:27] LABS: QuantiFERON NIL 0.02 IU/mL; QuantiFERON-TB Gold In-Tube NEGATIVE (Negative)
== END 2016-09-05 14:03 | disposition home or self-care (01) ==
LOC: 2ANU 17:33 → EMEROO 17:33 → 2ANU 09-03 00:44
PROVIDERS: ADMIT Internal Medicine; ATTEND Internal Medicine

== ENCOUNTER 2020-05-24 11:36 | Inpatient (IN) ==
[2020-05-24] MEDS ORDERED: CeFAZolin Syr 2,000MG/20 ML 2,000 MG/20 ML SYRINGE IVPB ONE (12:02)
[2020-05-24] MEDS ORDERED: Famotidine 20 MG/2 ML VIAL IVP ONE (12:06)
[2020-05-24] MEDS ORDERED: Acetaminophen IV 1,000 MG/100 ML BAG IVPB ONE (12:07)
[2020-05-24] MEDS ORDERED: Ringers Solution, Lactated 1,000 ML IVC SCH ×2 (12:15→15:30)
[2020-05-24] MEDS ORDERED: *HR* OxyCODONE Immed Rel 5 MG TABLET PO PRN ×2 (12:19→15:30)
[2020-05-24] MEDS ORDERED: Ondansetron 4 MG/2 ML VIAL IVP PRN ×2 (12:19→15:30)
[2020-05-24] MEDS ORDERED: *HR* HYDROmorphone PF 0.5 MG/0.5 ML SYRINGE IVP PRN (12:19)
[2020-05-24] MEDS ORDERED: *HR* Propofol 200 MG/20 ML VIAL IVP ONE (12:39)
[2020-05-24] MEDS ORDERED: *HR* FentaNYL (PF) 100 MCG/2 ML VIAL ONE ×2 (12:39→12:43)
[2020-05-24] MEDS ORDERED: *HR* Midazolam HCl 2 MG/2 ML VIAL ONE (12:39)
[2020-05-24] MEDS ORDERED: Ethanol\\Acetic Acid\\Na Ace\\Ben 1,000 ML IRRIG.SOLN IR ONE (12:40)
[2020-05-24] MEDS ORDERED: Vancomycin 1,000 MG VIAL ONE (12:40)
[2020-05-24] MEDS ORDERED: Dexamethasone 4 MG/ML VIAL ONE (12:42)
[2020-05-24] MEDS ORDERED: Ondansetron 4 MG/2 ML VIAL ONE (12:42)
[2020-05-24] MEDS ORDERED: Lidocaine -MPF 2% 2 ML VIAL ONE (12:42)
[2020-05-24] MEDS ORDERED: *HR* Succinylcholine 200 MG/10 ML VIAL IVP ONE (12:42)
[2020-05-24] MEDS ORDERED: *HR* Rocuronium Bromide 50 MG/5 ML VIAL ONE (12:50)
[2020-05-24] MEDS ORDERED: ROPIVACAINE/PF/NS 0.25% 1 EACH SYRINGE INTRAART ONE (12:51)
[2020-05-24] MEDS ORDERED: Ropivacaine/PF 0.5% 30 ML VIAL ONE (12:51)
[2020-05-24] MEDS ORDERED: Povidone-Iodine 45 ML, Sodium Chloride IRRigation 1,000 ML IR ONE (13:40)
[2020-05-24 15:03] LABS: Hemoglobin 14.1 g/dL (12.9-16.9)
[2020-05-24] MEDS ORDERED: Naloxone 0.4 MG/ML INJ IVP PRN (15:30)
[2020-05-24] MEDS ORDERED: *HR* OxyCODONE/APAP 5/325 TABLET PO PRN (15:30)
[2020-05-24] MEDS ORDERED: MOM Conc 10 ML UD.LIQ PO PRN (15:30)
[2020-05-24] MEDS ORDERED: *HR* Dextrose 50 % in Water (Vial) 50 ML VIAL IVP PRN (15:30)
[2020-05-24] MEDS ORDERED: Dextrose Gel 15 GM/37.5 ML TUBE PO PRN ×2 (15:30)
[2020-05-24] MEDS ORDERED: Sennosides 8.6 MG TABLET PO PRN (15:30)
[2020-05-24] MEDS ORDERED: D5% in Water 1,000 ML IVC PRN (15:30)
[2020-05-24] MEDS ORDERED: Insulin LISPRO 300 UNITS/3 ML VIAL SUBQ SCH ×2 (16:30→21:00)
[2020-05-24] MEDS ORDERED: CeFAZolin 2 GM/120 ML BAG IVPB SCH (16:30)
[2020-05-24 18:38] VITALS: BP 103/70
[2020-05-24] MEDS ORDERED: QUEtiapine Fumarate 25 MG TABLET PO SCH (21:00)
[2020-05-25] MEDS ORDERED: *HR* Rivaroxaban 10 MG TABLET PO SCH (09:00)
== END 2020-05-24 19:01 | disposition home or self-care (01) | DRG 483 ==
LOC: SAMDAY 11:36 → 3NENU 15:05
PROVIDERS: ADMIT Orthopaedic Surgery; ATTEND Orthopaedic Surgery